=== PATIENT | female | born 1980 ===

== ENCOUNTER 2017-06-10 07:10 | Emergency (ER) | payer OTHER ==
[2017-06-10 07:35] VITALS: BMI 24.4
[2017-06-10] MEDS ORDERED: Albuterol-Ipratrop 3 mg / 0.5 (3 ml) UD INH STA ×2 (07:37→07:53)
[2017-06-10] MEDS ORDERED: Albuterol-Ipratrop 3 mg / 0.5 (3 ml) UD ONE ×2 (07:49→08:53)
--- NOTE | 2017-06-10 08:02 | C.PDOC ---
History Of Present Illness Patient is a 36-year-old female, whose PMHx includes Asthma, presents to the emergency department with complaints of asthma exacerbation. Patient is visiting from [place], and states she developed a productive cough with green sputum last night, which is similar to prior asthma exacerbation symptoms. Patient attributes her symptoms to perfumes and fresheners/scents in the area. She denies any prior visits to ED for same complaint. Last steroid use was one month ago. Patient denies fevers, rash, nausea/vomiting, chest pain , back pain, or any other associated symptoms. No other complaints at this time. Chief Complaint (Nursing): Cough, Cold, Congestion History Per: Patient History/Exam Limitations: no limitations Past Medical History Reviewed: Historical Data, Nursing Documentation, Vital Signs Vital Signs: Last Vital Signs Temp 98 F 06/10/17 09:32 Pulse 99 H 06/10/17 09:32 Resp 16 06/10/17 09:32 BP 118/70 06/10/17 09:32 Pulse Ox 96 06/10/17 09:32 - Medical History PMH: Asthma Family History: States: No Known Family Hx - Social History Hx Tobacco Use: No Hx Alcohol Use: Yes (occasional) Hx Substance Use: No Review Of Systems Constitutional: Negative for: Fever, Chills Cardiovascular: Negative for: Chest Pain, Palpitations Respiratory: Positive for: Cough, Shortness of Breath, Sputum, Wheezing Gastrointestinal: Negative for: Vomiting Skin: Negative for: Rash Neurological: Negative for: Weakness, Numbness, Headache, Dizziness Physical Exam - Physical Exam Appears: Non-toxic, No Acute Distress Skin: Normal Color, Warm, Dry, No Rash Head: Normacephalic Eye(s): bilateral: PERRL Nose: Normal, No Flaring Oral Mucosa: Moist Lips: Normal Appearing Neck: Normal ROM Chest: Symmetrical Cardiovascular: Rhythm Regular, No Murmur Respiratory: No Decreased Breath Sounds, No Accessory Muscle Use, Wheezing ( expiratory, bilaterally) Extremity: Normal ROM, No Deformity, No Swelling Neurological/Psych: Oriented x3, Normal Speech ED Course And Treatment O2 Sat by Pulse Oximetry: 92 (RA) Pulse Ox Interpretation: Abnormal Medical Decision Making Medical Decision Making: Impression Asthma exacerbation Plan: * Duoneb x2 * Singulair * Prednisone * Peak flow * Reassess and Disposition Progress notes: 8:56 AM - Pt feels better. No wheezing. Will d/c home shortly Disposition Counseled Patient/Family Regarding: Studies Performed, Diagnosis - Disposition Referrals: [facility] [Outside] Disposition: HOME/ ROUTINE Disposition Time: 08:57 Condition: IMPROVED Additional Instructions: Ms. Olea, thank you for letting us take care of you today. Return to the ER if your symptoms worsen. Take the medication listed below as prescribed. Follow up with your physician in [place] as soon as possible. Continue using your asthma pump as needed every 4-6 hours. Prescriptions: Montelukast [Singulair] 1 tab PO DAILY #30 tab predniSONE [predniSONE Tab] 1 tab PO BID #10 tab Instructions: Asthma in Adults Forms: [facility] (Martiniquais), General Discharge Instructions Print Language: GREEK - POA Present On Arrival: None - Clinical Impression Clinical Impression: Asthma - Scribe Statement The provider has reviewed the documentation as recorded by the Scribe (Maricruz Vargas) All medical record entries made by the Scribe were at my direction and personally dictated by me. I have reviewed the chart and agree that the record accurately reflects my personal performance of the history, physical exam, medical decision making, and the department course for this patient. I have also personally directed, reviewed, and agree with the discharge instructions and disposition.
[2017-06-10 09:33] VITALS: BP 118/70; PULSE 99; RESP 16; TEMP 98
[2017-06-10 09:53] VITALS: O2SAT 92
== END 2017-06-10 09:32 | disposition home or self-care (01) ==
LOC: C.ER 07:10
DX: J45.909 Unspecified asthma, uncomplicated (principal)